=== PATIENT | female | born 2000 | race African-American/Black ===

== ENCOUNTER 2024-09-29 14:54 | Emergency (ER) | payer OTHER ==
[~2024-09-29] VITALS: Ht 167.6 cm; Wt 75.0 kg
[2024-09-29 14:58] VITALS: PULSE 100; RESP 18; O2SAT 99
[2024-09-29 15:01] VITALS: BP 146/87; TEMP 36.5; O2SAT 100
== END 2024-09-29 15:42 | disposition home or self-care (01) ==
LOC: ER 14:54
DX: Z32.02 Encounter for pregnancy test, result negative (principal); I10 Essential (primary) hypertension; Z59.00 Homelessness unspecified
CPT/HCPCS: 81025; 99282; 99283

== ENCOUNTER 2024-12-22 16:13 | Emergency (ER) | payer OTHER ==
[~2024-12-22] VITALS: Ht 172.7 cm; Wt 73.0 kg
[2024-12-22 16:15] VITALS: TEMP 98.7; O2SAT 100
[2024-12-22] MEDS: ONDANSETRON 4MG ODT PO ONE (17:26)
[2024-12-22] MEDS: SODIUM CHLORIDE 0.9% 1,000 ML IV ONE (17:30)
[2024-12-22 18:09] LABS: BASOPHILS % 0.7 % (0.0-2.0); EOSINOPHILS % 0.2 % (0.0-5.0); HEMATOCRIT. 41.8 % (36.0-48.0); HEMOGLOBIN. 14.0 g/dL (12.0-16.0); LYMPHOCYTES % 36.9 % (20.0-50.0); MEAN PLATELET VOLUME 8.9 fl (7.4-10.4); MONOCYTES % 6.3 % (2.0-8.0); NEUTROPHILS % 55.9 % (40.0-76.0); PLATELET 199 x1000/uL (130-400); RED BLOOD CELL COUNT 4.99 mill/uL (4.2-5.4); RED CELL DISTRIBUTION WIDTH 12.7 % (11.6-14.6)
[2024-12-22] MEDS: ONDANSETRON HCL 4MG/2ML INJ IV ONE (18:19)
[2024-12-22 18:26] LABS: CREATININE 0.6 mg/dL (0.6-1.0)
[2024-12-22 18:28] LABS: ASPARTATE AMINOTRANSFERASE 19 IU/L (<34); BILIRUBIN DIRECT 0.1 mg/dL (<=3.0); BILIRUBIN TOTAL 0.4 mg/dL (0.1-1.0); PROTEIN TOTAL 7.8 g/dL (6.0-8.3)
[2024-12-22 18:38] LABS: UREA NITROGEN BLOOD < 5 mg/dL (9-23)
[2024-12-22 18:42] LABS: HCG SCREEN POSITIVE
[2024-12-22 18:44] LABS: *AMPHETAMINES SCREEN URINE NEGATIVE (NEGATIVE); *BARBITURATES SCREEN URINE NEGATIVE (NEGATIVE); *BENZODIAZEPINES SCREEN URINE NEGATIVE (NEGATIVE); *COCAINE SCREEN URINE NEGATIVE (NEGATIVE); CANNABINOID URINE SCREEN PRESUMPTIVE POSITIVE (NEGATIVE); ECSTASY MDMA SCREEN URINE NEGATIVE (NEGATIVE); METHADONE URINE SCREEN NEGATIVE (NEGATIVE); OPIATES URINE SCREEN NEGATIVE (NEGATIVE); PHENCYCLIDINE URINE SCREEN NEGATIVE (NEGATIVE)
[2024-12-22] MEDS ORDERED: ONDA-239 PO (18:50)
[2024-12-22 18:52] LABS: CLARITY URINE CLOUDY (CLEAR); COLOR URINE YELLOW (YELLOW); SPECIFIC GRAVITY URINE 1.028 (1.005-1.030)
[2024-12-22 18:53] LABS: GLUCOSE URINE NEGATIVE (NEGATIVE); KETONES URINE 2+ (NEGATIVE); LEUKOCYTE ESTERASE URINE 1+ (NEGATIVE); NITRITE URINE NEGATIVE (NEGATIVE); OCCULT BLOOD URINE NEGATIVE (NEGATIVE); PH URINE 6.5 (4.5-8.0); PROTEIN URINE 3+ (NEGATIVE); UROBILINOGEN URINE 1.0 E.U./dL (0.2-1.0)
[2024-12-22 19:17] VITALS: BP 132/83; PULSE 78; RESP 14; O2SAT 100
[2024-12-22 19:17] LABS: BACTERIA URINE TRACE; RBC URINE NONE SEEN /hpf (0-2); SQUAMOUS EPITHELIAL CELL URINE 3+ /lpf (RARE/1+)
[2024-12-22 19:18] LABS: MUCUS URINE 2+ /lpf (< = 2+)
== END 2024-12-22 19:21 | disposition home or self-care (01) ==
LOC: ER 16:13
DX: O21.0 Mild hyperemesis gravidarum (principal); R10.20 Pelvic and perineal pain unspecified side; Z3A.10 10 weeks gestation of pregnancy; Z86.79 Personal history of other diseases of the circulatory system; Z79.899 Other long term (current) drug therapy
CPT/HCPCS: 99283; 96360; 96361; 80076; 80305; 80048; 81003; 84703; 84702; 83690; 85025; 36415; Q0162; J7030